=== PATIENT | male | born 1980 | race Caucasian/White ===

== ENCOUNTER 2017-10-07 21:26 | Emergency (ER) | payer OTHER ==
[2017-10-07] MEDS ORDERED: Acetaminophen/HYDROcodone 325-5 MG Tab PO ONE (21:57)
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
[2017-10-07] MEDS ORDERED: Iopamidol 612 MG/ML 100 ML Bottle IV PRN (23:07)
[2017-10-07] MEDS ORDERED: Sodium Chloride 0.9% 75 ML IV SCH (23:15)
--- NOTE | 2017-10-10 08:44 | CR ---
Ribs 3V w Chest Bi CLINICAL HISTORY: Trauma left anterior ribs FINDINGS: There is no acute fracture within the ribs. No destructive changes are seen. There is no fo ronnie pleural thickening or obvious effusion. Lung cain are clear IMPRESSION: Negative left ribs.
== END 2017-10-08 00:38 | disposition home or self-care (01) ==
LOC: JP.ED 21:26
DX: S22.32XA Fracture of one rib, left side, initial encounter for closed fracture (principal); S90.811A Abrasion, right foot, initial encounter; W22.8XXA Striking against or struck by other objects, initial encounter; Y93.02 Activity, running
CPT/HCPCS: 71111; 71260; 99285; A9270; J7030; Q9967